=== PATIENT | female | born 1955 | race Caucasian/White ===

== ENCOUNTER → 2017-01-27 | Outpatient (CLI) | payer OTHER ==
[2017-01-27 14:32] LABS: Partial Thromboplastin Time 23.7 sec (22.0-30.0); Prothrombin Time 10.2 sec (9.0-12.0)
[2017-01-27 14:34] LABS: Anion Gap 10 mmol/L; Blood Urea Nitrogen 12 mg/dL (7-17); Carbon Dioxide 25 mmol/L (22-30); Chloride 108 mmol/L (98-107); Glucose 93 mg/dL (74-99); Potassium 4.1 mmol/L (3.5-5.1); Sodium 143 mmol/L (137-145)
[2017-01-27 14:35] LABS: ALT 29 U/L (9-52); AST 20 U/L (14-36); Alkaline Phosphatase 52 U/L (38-126); Calcium 9.3 mg/dL (8.4-10.2); Non-African American GFR(MDRD) >60 (>60 ml/min/1.73 sqM); Total Bilirubin 0.5 mg/dL (0.2-1.3); Total Protein 6.8 g/dL (6.3-8.2)
[2017-01-27 14:52] LABS: Appearance,Urine Clear (Clear); Bilirubin,Urine Negative (Negative); Glucose,Urine (UA) Negative (Negative); Ketones,Urine Negative (Negative); Leukocyte Esterase,Urine Small (Negative); Mucus,Urine Many /hpf; Nitrite,Urine Negative (Negative); Particle Count 1644; Protein,Urine Negative (Negative); RBC,Urine 1 /hpf (0-5); Specific Gravity,Urine 1.008 (1.001-1.035); Squamous Epithelial Cell,Urine 1 /hpf (0-4); UA Billing (MACRO vs. MICRO) MICRO; Urobilinogen,Urine <2.0 mg/dL (<2.0); WBC,Urine 5 /hpf (0-5)
[2017-01-27 14:58] LABS: CH 28.7; HCT 40.3 % (34.0-46.0); HDW 2.16; HGB 12.4 gm/dL (11.4-16.0); Hypochromasia Slight; MCH 28.8 pg (25.0-35.0); MCHC 30.9 g/dL (31.0-37.0); MCV 93.2 fL (80.0-100.0); Mean Platelet Volume 7.1; RBC 4.32 m/uL (3.80-5.40); RDW 13.3 % (11.5-15.5)
== END | disposition home or self-care (01) ==
LOC: LABPAT 12:51
PROVIDERS: ATTEND Orthopaedic Surgery Sports Medicine
DX: Z01.810 Encounter for preprocedural cardiovascular examination (principal); Z01.812 Encounter for preprocedural laboratory examination; Z79.01 Long term (current) use of anticoagulants
CPT/HCPCS: 36415; 80053; 81001; 85027; 85610; 85730; 87070

== ENCOUNTER 2017-02-16 09:23 | Inpatient (IN) | payer OTHER ==
[2017-02-10 12:58] VITALS: BMI 27.8
[~2017-02-16 09:23] MED LIST: ACETAMINOPHEN TAB 500 MG TAB PO ONE; DEXAMETHASONE SOD PHOSPHATE 10 MG/ML 1 ML VIAL IV ONE; HYDROmorphone 1 MG/ML 1 ML SYRINGE IVP PRN; LACTATED RINGERS 1,000 ML IV SCH; LIDOCAINE 1% 20 ML VIAL (10MG/ML) FOR IV START INTRADERMA PRN; MELOXICAM 7.5 MG TAB PO ONE; MIDAZOLAM 2 MG/2 ML VIAL IV PRN; ONDANSETRON 4 MG/2 ML VIAL IVP ONE; ROPIVACAINE 246.25 MG, EPINEPHrine 0.5 MG, KETOROLAC 30 MG, cloNIDine HCL/PF 80 MCG, WA... MISCELLANE ONE; SCOPOLAMINE 1.5MG/72HR PATCH TRANSDERM ONE; TRANEXAMIC ACID 1,000 MG in SODIUM CHLORIDE 0.9% 100 ML IVPB PRN; ceFAZolin IN SWFI 2 GM/20 ML SYRINGE IVP ONE
[2017-02-16] MEDS ORDERED: TRANEXAMIC ACID 1,000 MG/10 ML VIAL ONE (13:48)
[2017-02-16] MEDS ORDERED: ePHEDrine SULFATE/0.9% NACL/PF 50 MG/5 ML SYRINGE IV ONE (13:48)
[2017-02-16] MEDS ORDERED: fentaNYL (PF) 50 MCG/ML 2 ML AMP ONE (13:48)
[2017-02-16] MEDS ORDERED: LIDOCAINE 1% INJ 10MG/ML (20 ML MDV) ONE (13:48)
[2017-02-16] MEDS ORDERED: MIDAZOLAM 2 MG/2 ML VIAL ONE (13:48)
[2017-02-16] MEDS ORDERED: SODIUM CHLORIDE 0.9% 100 ML BAG ONE (13:48)
[2017-02-16] MEDS ORDERED: PROPOFOL 10 MG/ML 20 ML VIAL IV ONE (13:48)
[2017-02-16] MEDS ORDERED: MORPHINE SULFATE (PF) 0.3 MG/0.3 ML SYR ONE (13:48)
[2017-02-16] MEDS ORDERED: SODIUM CHLORIDE 0.9% 20 ML with ceFAZolin 2 GM IV ONE ×2 (13:48)
[2017-02-16] MEDS ORDERED: NALOXONE 0.4 MG/ML 1 ML VIAL IV PRN ×2 (13:56→14:56)
[2017-02-16] MEDS ORDERED: ONDANSETRON 4 MG/2 ML VIAL IVP PRN (13:56)
[2017-02-16] MEDS ORDERED: hydrOXYzine PAMOATE 25 MG CAP PO PRN (13:56)
[2017-02-16] MEDS ORDERED: TEMAZEPAM 15 MG CAP PO PRN (13:56)
[2017-02-16] MEDS ORDERED: HYDROcodone/APAP 7.5-325MG 1 EACH TAB PO PRN ×2 (13:56)
[2017-02-16] MEDS ORDERED: ACETAMINOPHEN TAB 325 MG TAB PO PRN (13:56)
[2017-02-16] MEDS ORDERED: traMADol 50 MG TAB PO PRN (13:56)
[2017-02-16] MEDS ORDERED: NA PHOS,M-B/NA PHOS,DI-BA 133 ML ENEMA RECTAL PRN (13:56)
[2017-02-16] MEDS ORDERED: BISACODYL 10 MG SUPP RECTAL PRN (13:56)
[2017-02-16] MEDS ORDERED: MAGNESIUM HYDROXIDE 2,400 MG/10 ML CUP PO PRN (13:56)
[2017-02-16] MEDS ORDERED: DIAZEPAM 5 MG TAB PO PRN (13:56)
[2017-02-16] MEDS ORDERED: HYDROmorphone 1 MG/ML 1 ML SYRINGE IVP PRN ×3 (13:56)
[2017-02-16] MEDS ORDERED: ceFAZolin 3,000 MG in SODIUM CHLORIDE 0.9% IRRIGATIO 3,000 ML IRRIGATION ONE (14:18)
[2017-02-16] MEDS ORDERED: METOCLOPRAMIDE 5 MG/ML 2 ML VIAL IVP PRN (14:56)
[2017-02-16] MEDS ORDERED: diphenhydrAMINE 50 MG/ML 1 ML VIAL IVP PRN (14:56)
[2017-02-16] MEDS ORDERED: PROMETHAZINE INJ 6.25 MG in SODIUM CHLORIDE 0.9% 50 ML IVPB PRN (14:56)
[2017-02-16] MEDS ORDERED: LACTATED RINGERS 1,000 ML IV ONE (16:26)
--- NOTE | 2017-02-16 16:33 | XR ---
Left knee HISTORY: Status post left knee arthroplasty 2 views of the left knee Patient is status post left knee arthroplasty. There is anatomic alignment. Lucency present in the so ft tissues compatible with postop state. IMPRESSION: Orthopedic follow-up
--- NOTE | 2017-02-16 17:18 | OP ---
OPERATIVE REPORT DATE OF PROCEDURE: 02/16/2017. PREOPERATIVE DIAGNOSIS: Left knee osteoarthrosis. POSTOPERATIVE DIAGNOSIS: Left knees osteoarthrosis. OPERATION: Left total knee arthroplasty. ANESTHESIA: Spinal with sedation. SURGEON: Thai Friend MD. FIBER ARTIST: RYNE Joshi. ANESTHESIA: Spinal with sedation. ESTIMATED BLOOD LOSS: 100 mL. TOURNIQUET TIME: 50 minutes at 250 mmHg. COMPLICATIONS: None apparent. DRAINS: None. DISPOSITION: Postanesthesia care unit. INDICATIONS: Ly is a very pleasant, 61-year-old female with longstanding history of left knee pain. History and physical examination consistent with advanced left knee osteoarthrosis. She has been through significant nonoperative management up to this point. Further treatment options were discussed and she has decided to go for the left total knee arthroplasty. Of note, Ly did disclose in preoperative that she does have a sensitivity to metal. As such, we went forward with a Oxinium implant as to avoid any adverse reaction to metal. The risks of the procedure were discussed with her in detail. These risks include, but are not limited to, risk of infection, nerve damage, bleeding, pain, and a small risk of deep vein thrombosis which could lead to fatal pulmonary embolism. There is also risk of loosening of the implant which could require revision operation. The patient understands these risks. All of her questions were answered to her satisfaction. Appropriate informed consent was obtained. PROCEDURE: The patient was identified in the preoperative holding area. Surgical sites marked by both the patient myself. She was given 2 g of Ancef IV for prophylactic purposes. She was then transferred to the operative suite where she was placed supine on the operative table. Spinal anesthetic was then administered dosed per the anesthesia without apparent complication. Examination under anesthesia was then performed. She is 5 degrees shy of full extension. She had 100 degrees of flexion in the medial collateral ligament. Lateral collateral ligament and posterior cruciate ligaments were stable. Tourniquet was then placed high on the left upper thigh well-padded in preparation for surgery. The patient's left lower extremity then prepped and draped in usual sterile fashion. Standard surgical pause was undertaken to ensure that we were operating the correct site and that appropriate preoperative antibiotics were given. All staff in the room in agreement and we proceeded. The outlines of the patella were marked surgical pen. A planned 12 cm vertical incision centered over the patella was marked surgical pen. Leg was then exsanguinated with an Esmarch dressing. The knee was then flexed and the tourniquet was inflated to 250 mmHg. The total tourniquet time for the procedure was 50 minutes. Incision was then made with a 10 blade scalpel. Dissection was carried down sharply to the overlying fascia. Great care was taken to minimize the skin flaps. The knee was then exposed using a standard medial parapatellar approach. A small cuff of quadriceps tendon was left for suturing. She was in a bit of varus preoperatively. A standard medial release was then made. Superficial medial collateral ligament was dissected off the bone around the posterior aspect of the proximal tibia. The medial meniscus was then excised as well. The lateral meniscus was also released anteriorly. The leg was then externally rotated. The patella was everted and the knee was flexed. The retractors were then placed to protect the collateral ligaments. I then proceeded to remove the infrapatellar fat pad. This was excised sharply tangentially with fibers of the patellar tendon. I then proceeded to remove peripheral osteophytes. This is done with a rongeur. I then proceeded with the distal femoral resection. She did have a flexion contracture. I planned to take an extra 2 mm off the distal femur. This planned for an 11 mm resection. The femoral canal was then entered in the midline of the femur approximately 10 mm anterior to the posterior cruciate ligament. The eun was then advanced down the center of the femur and placed intramedullary. Based on the preoperative radiographs the angle between the anatomic and mechanical axis of the femur was approximately 4-5 degrees. The valgus angle of this femoral cutting guide was set at 4 degrees for the left knee. The distal femoral cutting guide was then advanced over the intramedullary eun. This was seated firmly against the femur. I then as mentioned planned to take 11 mm off the distal femur. The cutting block was then secured onto the femur with pins. The jig was then removed. The distal femoral cut was made through the slot of the block. The pins then removed the distal femoral cutting block was removed. The accuracy of this femoral cuts was checked with 2 flat bars. I then proceed to femoral sizing. Posterior referencing sizing guide was held firmly against the resected distal surface of the femur. Posterior condyles were resting on the posterior plane of the guide. The sizing stylus was then placed onto the anterior femur. The size was measured as a size 4 narrow. I then assessed for femoral rotation. The plan was for 3 degrees of external rotation. 3 degrees of external rotation was placed onto the jig. These holes were then marked. Then confirmed the rotation by 3 separate methods. This was done using the epicondylar axis as well as Whitesides line and posterior referencing. It was deemed that the external rotation was proper. I then went forward placing the femoral cutting block. This was placed over the previously placed pin holes. The Abdirahman wing was then placed onto the anterior slots to ensure that we would not notch the anterior femur with the anterior femoral cut. I then proceed with the anterior femoral cut. This was flush with the anterior cortex of the femur. The posterior cuts were then made followed by the anterior chamfer cut, and then the posterior chamfer cut. The cutting block was then removed. Throughout the resection the collateral ligaments were protected with retractors. I then placed a trial size 4 narrow femur. It fit very nicely medial- lateral and fit flush with the distal end of the femur. The drill holes were then made. I then proceeded with the tibial cutter. Plan for cruciate retaining knee. The guide was then placed and set for varus valgus and for slope. The height was set for approximate 2 mm resection from the medial tibial plateau which was the lower side. I was happy with the alignment amount of resection. The cutting block was then pinned to the proximal tibia. The alignment eun was removed the proximal tibia was resected with a reciprocating saw. Again this was done with retractors protecting the collateral ligaments as well as the posterior cruciate ligament. I then proceeded to evaluate the flexion and extension gaps. A 10 mm block was placed. The flexion-extension gaps were equal. I then proceed to resection of posterior osteophytes. She had very extensive posterior osteophytes. This is done using a curved osteotome. This resected the posterior osteophytes and posterior capsule stripping was also done off the posterior aspect of the femur at this time. The osteophytes were removed. I then proceeded with resection of the patella. The thickness of patella was measured using the caliper. The thickness was 22 mm. The thickness of the anticipated patellar dome was taken into account. The resection was then performed and confirmed to be equal in 4 quadrants using a caliper. Approximately 14 mm of bone remained after the resection. A 32 x 8 mm standard patellar trial was then placed. The holes were drilled. The trial was then placed. I then proceeded with sizing the tibial plate. A size 2 tibial plate fit very nicely. I then placed the trial femur tibial tray and patellar button. A 9 mm tibial trial tibial insert was also placed. The components fit very nicely. She had full flexion, extension. The extension flexion gaps were equal and stable to both varus and valgus stress. The patella tracked appropriately. The tibial tray rotation was marked with a Bovie. This was externally rotated properly. I then proceed with tibial preparation. I first drilled the femoral holes removed femoral component. The tibial tray was then set for proper external rotation, as well as mediolateral placement onto the tibia. It was then pinned into place. I then proceeded with punching the keel. I then decided to proceed with cementing of all of our components. The knee was thoroughly irrigated with sterile saline solution via pulse lavage. The lateral geniculate artery was identified and cauterized. All blood was removed from the bone of the tibia femur and patella with pulse lavage. I then proceed with cementing. Two packs of antibiotic bone cement were prepared on the back table by the certified surgical tech/first assistant. I then proceed with cementing the tibia first. The cement was impacted into the keel as well as deeply seated into the bone. A 2nd coat of cement was then placed. The tibia was then impacted into place. Excess cement was removed with Shante's and jokers. I then proceed with cementing the femoral component. Femoral component was also cemented using standard technique. Excess cement was removed. A 10 mm trial insert was then placed into the knee. It was brought into full extension with a constant axial load placed until the cement had hardened. The patellar component was then cemented. This held firmly with a compressive device until the cement dried. When the cement had dried, the knee was taken out of extension. All excess cement was removed from around the prosthesis. I then trialed the knee with a 9 mm insert. Flexion extension gaps were appropriate. The knee came into full extension. I decided to go for the 9 mm cross-linked cruciate-retaining tibial insert. Polyethylene was then placed onto the tray and locked. The knee was then reduced. The knee was again further irrigated with sterile saline solution with antibiotic added. The tourniquet was then deflated. The total tourniquet time for the procedure was 50 minutes at 250 mmHg. Final components were a [employer] Oxinium implants, a size 4 narrow femoral cruciate retaining femoral component, a size 2 tibial tray, a 9 mm cruciate retaining polyethylene insert and a 32 x 8 mm patella. I then proceeded with closure. Again, the knee was thoroughly irrigated. The quadriceps tendon and the medial retinaculum were reapproximated with a #2 Ethibond suture. The extensor mechanism was then closed with a running #2 Quill suture. Subcutaneous tissues were then closed with 2-0 Vicryl interrupted suture. Skin was closed with a running 3-0 Quill suture. Dermabond was applied to the incision. Sterile compressive dressing was then applied. All sponge and needle counts were deemed correct prior to closure. The patient tolerated the procedure without apparent complication. She was transferred recovery room in stable conditions. MMJONOL / MARLYNN: [id number] /
[2017-02-16] MEDS: LACTATED RINGERS 1,000 ML IV SCH ×2 (18:37→23:27)
[2017-02-16] MEDS: ASPIRIN 325 MG TAB PO SCH (20:49)
[2017-02-16] MEDS: ceFAZolin IN SWFI 2 GM/20 ML SYRINGE IVP SCH (20:56)
[2017-02-16] MEDS ORDERED: SENNOSIDES-DOCUSATE SODIUM 1 EACH TAB PO SCH (21:00)
[2017-02-16] MEDS: NALBUPHINE 10 MG/ML AMPUL IV PRN (21:48)
[2017-02-17 01:01] VITALS: RESP 16
[2017-02-17] MEDS: MORPHINE SULFATE 10 MG/ML SYRINGE IVP PRN ×2 (02:54→07:42)
[2017-02-17] MEDS: ceFAZolin IN SWFI 2 GM/20 ML SYRINGE IVP SCH (05:57)
[2017-02-17] MEDS: NALBUPHINE 10 MG/ML AMPUL IV PRN ×2 (06:27→10:42)
[2017-02-17 07:02] LABS: Basophils % (A) 0 %; CH 28.1; CHCM 30.7; Eosinophils % (A) 0 %; HCT 33.6 % (34.0-46.0); HDW 2.14; HGB 10.2 gm/dL (11.4-16.0); Hypochromasia Slight; Luc % (Auto) 1; Lymphocytes # (A) 1.1 k/uL (1.0-4.8); Lymphocytes % (A) 8 %; MCH 28.1 pg (25.0-35.0); MCHC 30.5 g/dL (31.0-37.0); MCV 92.1 fL (80.0-100.0); Mean Platelet Volume 7.9; Monocytes # (A) 0.8 k/uL (0-1.0); Monocytes % (A) 5 %; Neutrophils # (A) 11.8 k/uL (1.3-7.7); Neutrophils % (A) 85 %; RBC 3.65 m/uL (3.80-5.40); RDW 14.4 % (11.5-15.5); WBC 13.9 k/uL (3.8-10.6); WBC (Perox) 14.37
[2017-02-17 07:37] VITALS: BP 116/61; PULSE 61; TEMP 97
[2017-02-17] MEDS: ASPIRIN 325 MG TAB PO SCH (07:45)
[2017-02-17] MEDS: LACTATED RINGERS 1,000 ML IV SCH ×2 (07:47→09:15)
--- NOTE | 2017-02-17 09:32 | P.DS ---
Providers Date of admission: 02/16/17 12:07 Expected date of discharge: 02/17/17 Attending physician: Thai Friend Consults: 02/16/17 13:56 Consult Physician Routine Consulting Provider: Issa Burch Consult Reason/Comments: post op medical management Do you want consulting provider notified?: Yes Primary care physician: Myron Renteria - Discharge Diagnosis(es) (1) Osteoarthritis of left knee Patient was admitted to the OR on 02/16/17 to undergo left total knee arthroplasty. She had failed conservative measures as an outpatient and desired to proceed with elective surgery after given informed consent. She underwent the above procedure which she tolerated well without complication. Postoperative hospital course has remained without complication. On day of discharge she is afebrile, vital signs stable, labs within acceptable ranges, tolerating by mouth meds and diet, voiding without difficulty, positive flatus, denies abdominal pain or calf pain, pain is controlled on oral pain medication and has no new complaints. Wound is benign, neurovascular status is intact, calf is soft and nontender, abdomen soft and nontender. Review of systems is negative for numbness, tingling, fever, chills, chest pain, shortness breath, nausea, vomiting, dizziness, headaches, slurred speech or other. Current Visit: Yes Status: Acute Priority: Medium Procedures: Left total knee arthroplasty Patient Condition at Discharge: Good Plan - Discharge Summary Discharge Rx Participant: Yes New Discharge Prescriptions: New Aspirin 325 mg PO BID #60 tab Docusate [Colace] 100 mg PO BID #60 capsule HYDROcodone/APAP 7.5-325MG [[place] 7.5-325] 1 - 2 each PO Q6HR PRN #90 tab PRN Reason: Pain No Action L.acidoph,Paracasei, B.lactis [Probiotic] 1 cap PO DAILY PRN PRN Reason: WHEN TAKING ANTIBIOTICS Eye Lubricant Combination No.1 [Freshkote] 1 applic BOTH EYES BID PRN PRN Reason: DRY EYES Loperamide HCl [Imodium A-D] 2 mg PO DAILY PRN PRN Reason: INDIGESTION, DIARRHEA Cephalexin [Keflex] 500 mg PO Q12HR Discharge Medication List Eye Lubricant Combination No.1 [Freshkote] 1 applic BOTH EYES BID PRN 02/10/17 [ History] L.acidoph,Paracasei, B.lactis [Probiotic] 1 cap PO DAILY PRN 02/10/17 [History] Loperamide HCl [Imodium A-D] 2 mg PO DAILY PRN 02/10/17 [History] Cephalexin [Keflex] 500 mg PO Q12HR 02/13/17 [History] Aspirin 325 mg PO BID #60 tab 02/17/17 [Rx] Docusate [Colace] 100 mg PO BID #60 capsule 02/17/17 [Rx] HYDROcodone/APAP 7.5-325MG [[place] 7.5-325] 1 - 2 each PO Q6HR PRN #90 tab [Rx] Follow up Appointment(s)/Referral(s): Thai Friend MD [STAFF PHYSICIAN] - 10 Days Activity/Diet/Wound Care/Special Instructions: Keep wound clean and dry Take meds as directed Follow-up with Dr. Friend in office Weight-bear as tolerated May shower in 72 hours Discharge Disposition: HOME WITH HOME HEALTH SERVICES
--- NOTE | 2017-02-17 11:15 | P.PN ---
Progress Note - Text 02/17 715 am 61 year old female s/p tkr by Dr Friend.pt seen this morning,pain well controlled,vas of 2. no c/o n/v, no complaits of itching. plans to go home today.
[2017-02-17 11:35] LABS: Appearance,Urine Clear (Clear); Bilirubin,Urine Negative (Negative); Glucose,Urine (UA) Negative (Negative); Ketones,Urine Negative (Negative); Leukocyte Esterase,Urine Negative (Negative); Nitrite,Urine Negative (Negative); Protein,Urine Negative (Negative); Specific Gravity,Urine 1.003 (1.001-1.035); UA Billing (MACRO vs. MICRO) CHEM; Urobilinogen,Urine <2.0 mg/dL (<2.0)
[2017-02-17] MEDS ORDERED: MULTIVITAMINS, THERA 1 EACH TAB PO SCH (12:00)
--- NOTE | 2017-02-17 22:12 | CONS ---
CONSULTATION DATE OF SERVICE: 02/17/17. REASON FOR CONSULTATION: Regarding elevated blood count and other medical issues requested by Dr. Friend. HISTORY OF PRESENT ILLNESS: This 61-year-old woman with a past medical history of DJD, history of back surgery, history of colonoscopy, being followed by primary physician, was admitted after left total knee arthroplasty. There is no history of fever, rigors or chills. No history of headache. Loss of consciousness or seizures. LABORATORY DATA: White count is 13.9. UA is unremarkable. There is no dysuria. No significant chest pain, palpitation, cough. PAST MEDICAL HISTORY: History of chest pain, DJD, history of back surgery, degenerative joint disease. MEDICATIONS: Prior to admission include 1. Imodium 81-2 tabs p.r.n. 2. Lactobacillus. 3. Hydrocodone. 4. Colace. 5. Aspirin. ALLERGIES: CIPROFLOXACIN, LATEX, METAL. FAMILY HISTORY: History of cancer in the family. SOCIAL HISTORY: No history of smoking. Occasional alcohol intake. REVIEW OF SYSTEMS: ENT: No diminished vision. Diminished hearing. Cardio system: No angina or palpitations. Respiratory: No cough or hemoptysis. GI: No nausea or vomiting. : No dysuria. Nervous system: No numbness or weakness. Allergy/Immunology: No asthma or hayfever. Musculoskeletal as mentioned earlier. Dermatology: Negative. Hematology/Oncology: No history of anemia. Endocrine: No history of diabetes or hypothyroidism. Constitutional: As mentioned earlier. Rheumatology: Negative. Psychiatric:As mentioned earlier. EXAMINATION: Pulse is 61, blood pressure 116/60, respiration 18, temperature 97 degrees, pulse ox 98% on room air. HEENT: Conjunctivae normal. Neck: No jugular venous distention. Cardiovascular: S1, S2. Respiratory: Breath sounds diminished in the bases. No rhonchi and no crackles. ABDOMEN: Soft, nontender. No mass palpable. Legs: status post left knee arthroplasty. NERVOUS SYSTEM: Higher functions as mentioned earlier. Moves all four limbs. No focal deficits. Lymphatics: No lymph nodes palpable in the neck, axillae or groin. SKIN: No ulcer, rash or bleeding. LABS: WBC 13.9, hemoglobin is 10.2. ASSESSMENT: 1. Status post left total knee arthroplasty. 2. Elevated WBC, possibly reactive. 3. History of degenerative joint disease. 4. History of back surgery. 5. History of leg cramps. 6. History of frequent urinary tract infections. RECOMMENDATIONS AND DISCUSSION: In this 61-year-old woman who presented with multiple complex medical issues, we will monitor the patient closely, continue the current management. Symptomatic treatment. UA was recommended, which is negative. The elevated WBC may indicate reactive basis. Otherwise I would recommend incentive spirometry. Continue the DVT prophylaxis and continue follow up with primary physician closely in the outpatient setting. Thank you Dr. Friend for letting us participate in the care of this patient. MMODL / IJN: [id number] /
== END 2017-02-17 13:55 | disposition home or self-care (01) | DRG 470 ==
LOC: 2ORMAIN 12:07 → 3SUR 15:45
PROVIDERS: ADMIT Orthopaedic Surgery Sports Medicine; ATTEND Orthopaedic Surgery Sports Medicine
PROC: 0SRD0J9 Replacement of Left Knee Joint with Synthetic Substitute, Cemented, Open Approach (ICD-10-PCS; principal; 2017-02-16 14:35)
DX: M17.12 Unilateral primary osteoarthritis, left knee (principal); D72.829 Elevated white blood cell count, unspecified; Z88.1 Allergy status to other antibiotic agents; Z88.2 Allergy status to sulfonamides; Z91.040 Latex allergy status; Z87.440 Personal history of urinary (tract) infections; Z80.9 Family history of malignant neoplasm, unspecified
CPT/HCPCS: 81003; 85025; 88300